=== PATIENT | male | born 1955 | race Native Hawaiian/Other Pacific Islander ===

== ENCOUNTER 2018-11-19 14:16 | Outpatient (CLI) | payer OTHER | END 2018-11-19 23:59 | disposition home or self-care (01) | LOC: LAB 14:16 | DX: E11.9 Type 2 diabetes mellitus without complications (principal) | CPT/HCPCS: 83036 ==

== ENCOUNTER 2018-12-10 16:29 | Outpatient (CLI) | payer OTHER ==
[2018-12-10 16:56] LABS: PLATELET COUNT 297 K/uL (142-355)
[2018-12-10 17:20] LABS: POTASSIUM 4.1 mmol/L (3.6-5.2)
== END 2018-12-10 20:09 | disposition home or self-care (01) ==
LOC: LAB 16:29
PROVIDERS: Family Medicine
DX: I10 Essential (primary) hypertension (principal); E11.9 Type 2 diabetes mellitus without complications
CPT/HCPCS: 80053; 80061; 82043; 82570; 84154; 84439; 84443; 84481; 85027